=== PATIENT | male | born 1945 | race Two or more races ===

== ENCOUNTER 2019-02-27 00:28 | Emergency (ER) | payer OTHER ==
[~2019-02-27] VITALS: Ht 175.3 cm; Wt 73.5 kg
[2019-02-27] MEDS ORDERED: INBRIJA42 M1 (01:08)
[2019-02-27] MEDS ORDERED: KETO10TA2 PO (02:11)
[2019-02-27] MEDS ORDERED: SKELAXIN800 MG PO (02:11)
== END 2019-02-27 03:23 | disposition home or self-care (01) ==
LOC: ER 00:28
DX: S33.5XXA Sprain of ligaments of lumbar spine, initial encounter (principal); W01.198A Fall on same level from slipping, tripping and stumbling with subsequent striking against other object, initial encounter; Y93.89 Activity, other specified; Y92.89 Other specified places as the place of occurrence of the external cause; Y99.8 Other external cause status